=== PATIENT | male | born 1950 | race Caucasian/White ===

== ENCOUNTER 2016-12-03 06:36 | Day surgery (SDC) | payer OTHER ==
[~2016-12-03] VITALS: Ht 185.4 cm; Wt 94.8 kg
[~2016-12-03 06:36] MED LIST: JANUMET 50/11 TABLET PO; PRINIVIL10 MG PO; TRULICITY0.75 MG/0. SC; ZOLOFT50 MG PO
[2016-12-03 07:28] VITALS: BP 140/72
[2016-12-03 07:44] LABS: POINT-OF-CARE METER ID UU14174212
[2016-12-03 09:53] LABS: POINT-OF-CARE METER ID UU13113675
[2016-12-03 10:13] VITALS: BP 153/70
[2016-12-03 11:00] VITALS: BP 159/74
== END 2016-12-03 11:20 | disposition home or self-care (01) ==
LOC: SDC 06:36
PROVIDERS: Ophthalmology
PROC: 08B Eye, Excision (ICD-10-PCS; principal; 2016-12-03)
DX: H43.11 Vitreous hemorrhage, right eye (principal); H59.021 Cataract (lens) fragments in eye following cataract surgery, right eye; Y83.8 Other surgical procedures as the cause of abnormal reaction of the patient, or of later complication, without mention of misadventure at the time of the procedure; E11.42 Type 2 diabetes mellitus with diabetic polyneuropathy; E78.5 Hyperlipidemia, unspecified; I10 Essential (primary) hypertension; Z88.0 Allergy status to penicillin
CPT/HCPCS: 82948; J0690; J0713; J3300